=== PATIENT | female | born 1995 | race Caucasian/White ===

== ENCOUNTER → 2024-12-18 | Outpatient (CLI) | payer BC | LOC: LAB 17:24 → LAB SHORT 17:24 | DX: O09.93 Supervision of high risk pregnancy, unspecified, third trimester (principal) | CPT/HCPCS: 87081; 87150 ==

== ENCOUNTER 2024-12-29 23:44 | Inpatient (IN) | payer BC ==
[~2024-12-29] VITALS: Ht 167.6 cm; Wt 69.5 kg
[2024-12-29 23:55] VITALS: BP 134/86
[2024-12-30] VITALS (9 sets, daily range): BP systolic 107–120; BP diastolic 62–82
[2024-12-30] MEDS ORDERED: Calcium Carbonate 500 MG Tab Chew PO PRN (00:05)
[2024-12-30] MEDS ORDERED: Acetaminophen 500 MG Tab PO PRN (00:05)
[2024-12-30] MEDS ORDERED: Ondansetron HCl 2 MG / ML 2ML Vial IV PRN (00:05)
[2024-12-30] MEDS ORDERED: Penicillin G Potassium 5,000,000 UNITS in NS 250 ML IV ONE (00:27)
[2024-12-30 00:28] LABS: BASOPHILS ABSOLUTE AUTO 0.01 K/mm3 (0.00-0.23); BASOPHILS PERCENT AUTO 0 % (0-2); EOSINOPHILS ABSOLUTE AUTO 0.09 K/mm3 (0.00-0.68); EOSINOPHILS PERCENT AUTO 1 % (0-6); Hematocrit 35.4 % (33.0-51.0); Hemoglobin 12.3 g/dL (11.5-16.0); IMMATURE GRAN ABSOLUTE AUTO 0.03 K/mm3 (0.00-0.10); IMMATURE GRAN PERCENT AUTO 0 % (0-1); LYMPHOCYTES ABSOLUTE AUTO 1.35 K/mm3 (0.84-5.20); LYMPHOCYTES PERCENT AUTO 16 % (21-46); MONOCYTES ABSOLUTE AUTO 0.64 K/mm3 (0.16-1.47); MONOCYTES PERCENT AUTO 8 % (4-13); Mean Corpuscular HGB 29.9 pg (26.0-34.0); Mean Corpuscular HGB Conc 34.7 g/dL (31.5-36.5); Mean Corpuscular Volume 86 fL (80-100); Mean Platelet Volume 10.2 fL (9.1-12.4); NEUTROPHILS ABSOLUTE AUTO 6.34 K/mm3 (1.96-9.15); NEUTROPHILS PERCENT AUTO 75 % (41-73); Platelet Count 220 K/mm3 (150-400); RDW Coefficient Variation 14.4 % (11.7-14.2); RDW Standard Deviation 45.1 fL (35.1-46.3); Red Blood Cell Count 4.12 M/mm3 (3.80-5.20); White Blood Cell Count 8.46 K/mm3 (4.00-11.30)
[2024-12-30] MEDS ORDERED: Lactated Ringer's 1,000 ML IV PRN (01:11)
[2024-12-30] MEDS ORDERED: Carboprost Tromethamine 250 MCG/ML 1ML Amp IM PRN (01:11)
[2024-12-30] MEDS ORDERED: Methylergonovine Maleate 0.2MG / ML 1ML Amp IM PRN (01:12)
[2024-12-30] MEDS ORDERED: Misoprostol 200 MCG Tab PR PRN (01:12)
[2024-12-30] MEDS ORDERED: Misoprostol 200 MCG Tab BC PRN (01:12)
[2024-12-30] MEDS ORDERED: Tranexamic Acid 100 ML IV PRN (01:13)
[2024-12-30] MEDS ORDERED: Oxytocin 10 Unit / ML Vial IM PRN (01:13)
[2024-12-30] MEDS ORDERED: OXYTOCIN/RINGER'S LACTATE 500 ML IV PRN (01:15)
[2024-12-30] MEDS ORDERED: Ketorolac Tromethamine 30mg Vial IV PRN (02:10)
[2024-12-30] MEDS ORDERED: Acetaminophen 325 MG TABLET PO PRN (02:10)
[2024-12-30] MEDS ORDERED: Lanolin Cream TOP PRN (02:10)
[2024-12-30] MEDS ORDERED: Lactated Ringer's 1,000 ML IV SCH (02:10)
[2024-12-30] MEDS ORDERED: Benzocaine Topical Anesthetic Spray 60GM TOP PRN (02:15)
[2024-12-30] MEDS ORDERED: Ibuprofen 400 MG Tab PO PRN (02:15)
[2024-12-30] MEDS ORDERED: Witch Hazel/Glycerin PADS TOP PRN (02:15)
[2024-12-30] MEDS ORDERED: Penicillin G Potassium 2,500,000 UNITS in Dextrose 5% 100 ML IV SCH (05:00)
[2024-12-30] MEDS ORDERED: Prenatal Vit/FE Fumarate/FA 1 Tab PO SCH (09:00)
--- NOTE | 2024-12-30 11:31 | NUR ---
ASSUMED CARE AT CHANGE OF SHIFT, MOTHER RESTING IN BED, REPORTS SHE HAD JUST WOKEN UP, AND HAD NO CONCERNS AT THIS TIME. 0830 ENTERED ROOM TO COMPLETE MORNING ASSESSMENT ON MOTHER AND . MOTHER REPORTS CRAMPING DISCOMFORT IN ABDOMEN, MEDICATED ORDERED. MOTHER REPORTS PLAN TO WAKE TO NURSE.
[2024-12-31 02:13] VITALS: BP 115/65
[2024-12-31 05:14] VITALS: BP 109/71
[2024-12-31 07:55] VITALS: BP 110/72
--- NOTE | 2024-12-31 10:50 | NUR ---
No acute changes this shift. Pt verbalized understanding of printed d/c instructions for both herself and nb. Denies additional teaching. ID bands matched w/nb and verification form. Pt d/c'd home ambulatory to care of .
[2024-12-31 10:53] VITALS: BP 111/76
== END 2024-12-31 11:40 | disposition home or self-care (01) | DRG 807 ==
LOC: OBS 23:44 → BC 23:46 → OBS 12-30 00:09 → BC 12-30 00:12
PROVIDERS: Obstetrics & Gynecology; ADMIT Advanced Practice Midwife
PROC: 10E0XZZ Delivery of Products of Conception, External Approach (ICD-10-PCS; principal; 2024-12-30)
DX: O62.3 Precipitate labor (principal); Z37.0 Single live birth; Z3A.37 37 weeks gestation of pregnancy; O99.824 Streptococcus B carrier state complicating childbirth; O99.02 Anemia complicating childbirth; D50.9 Iron deficiency anemia, unspecified; O99.344 Other mental disorders complicating childbirth; F41.8 Other specified anxiety disorders
CPT/HCPCS: 36415; 59025; 85025; 86850; 86900; 86901; 99214; A9270; J1885; J2540; J7050